=== PATIENT | male | born 1975 | race Caucasian/White ===

== ENCOUNTER → 2023-12-15 06:37 | Day surgery (SDC) | payer OTHER, SELFPAY | LOC: GI 06:37 | PROVIDERS: ATTENDING PHYSICIAN Internal Medicine | DX: Z12.11 Encounter for screening for malignant neoplasm of colon (principal); K57.30 Diverticulosis of large intestine without perforation or abscess without bleeding; K64.8 Other hemorrhoids; D12.3 Benign neoplasm of transverse colon; R12 Heartburn; K44.9 Diaphragmatic hernia without obstruction or gangrene; K29.50 Unspecified chronic gastritis without bleeding | CPT/HCPCS: 45385; 43239; 88305; 88342 ==

== ENCOUNTER 2024-09-18 13:45 | Emergency (ER) | payer OTHER, SELFPAY ==
[2024-09-18 13:54] VITALS: BP 167/103
[2024-09-18 14:20] LABS: INR 1.38; PT 17.2 Sec (11.4-14.6)
[2024-09-18 14:25] LABS: ALT (SGPT) 31 U/L (0-50); AST (SGOT) 28 U/L (17-59); Albumin 4.4 g/dl (3.5-5.0); Alkaline Phosphatase 87 U/L (38-126); Blood Urea Nitrogen 16 mg/dl (9-20); Calcium 8.7 mg/dl (8.4-10.2); Carbon Dioxide 24 mmol/L (22-30); Chloride 105 mmol/L (98-107); Glucose 102 mg/dl (70-99); Potassium 4.1 mmol/L (3.5-5.1); Sodium 137 mmol/L (135-145); Total Bilirubin 1.4 mg/dl (0.2-1.3); Total Protein 7.1 g/dl (6.3-8.2); eGFR > 60.00
[2024-09-18 14:26] LABS: % Basophils 0.3 % (0-2); % Eosinophils 2.6 % (0-6); % Immature Granulocytes 0.3 % (0-0.5); % Lymphocytes 37.6 % (20.5-51.1); % Monocytes 6.3 % (1.7-9.3); % Neutrophils 52.9 % (42.2-75.2); Absolute Eosinophils 0.2 10^3/uL (0-0.7); Absolute Lymphocytes 3.2 10^3/uL (1.2-3.4); Absolute Monocytes 0.5 10^3/uL (0.1-0.6); Absolute Neutrophils 4.6 10^3/uL (1.4-6.5); Hematocrit 45.5 % (39.0-52.0); Hemoglobin 16.8 g/dL (13.0-18.0); Mean Corp Hgb Conc. 36.9 g/dL (33.0-37.0); Mean Corpuscular Hgb 32.6 pg (27.0-31.0); Mean Corpuscular Volume 88.2 fL (80.0-94.0); Mean Platelet Volume 10.1 fL (7.4-10.4); Nucleated Red Blood Cells % 0 % (-); Platelet Count 237 10^3/uL (130-400); Red Blood Cell Count 5.16 10^6/uL (4.70-6.10); Red Cell Dist. Width 11.9 % (11.5-14.5); White Blood Cell Count 8.6 10^3/uL (4.8-10.8)
[2024-09-18 14:36] LABS: Troponin I < 0.012 ng/ml
[2024-09-18 15:42] VITALS: BP 145/87
[2024-09-18 15:46] VITALS: BMI 31.2
[2024-09-18 16:02] VITALS: BP 146/77
--- NOTE | 2024-09-18 16:02 | ED.GENMED ---
History of Present Illness
General
Chief Complaint: Cardiac Symptoms
Source: patient
Exam Limitations: none
Time Seen by Provider: 09/18/24 15:45
History of Present Illness
History of Present Illness:
49yoM with a history of atrial fibrillation s/p ablation x2, CHF, hypertension, and GERD presenting for evaluation of malaise. Patient reports feeling 'off' for the past week and not feeling right. He is having shortness of breath with activity. He
is also having some chest tightness and indigestion. He denies any palpitations and does not feel like he is in afib. He had an ablation 2 years ago and has not had any episodes of afib since then. He is going on a work trip to [place] tomorrow
and wanted to come to the ED to get checked before leaving. He denies any leg swelling, syncope, fevers, vomiting, diarrhea.
Past History
Past History
ED Past Medical History: Arrthythmia and CHF
ED Past Surgical History: Cardiac
Patient has exhibited threatening behavior?: No
Social History
Tobacco: Non-smoker
Alcohol: None
Drug: None
Personal:
Living: with family
Employment: Employed
Family History
Family History: Other (Noncontributory)
Phy Exam
General Physical Exam
General Presentation: well appearing and no apparent distress
General age: appears stated age
General Skin: warm and dry
General Habitus: normal
General Mental: alert
ENT Exam
ENT Exam: normocephalic
Cardiovascular Exam
Cardiovascular Exam: regular rate/rhythm, no edema and no murmur
Pulmonary Exam
Pulmonary Exam: lungs clear, no respiratory distress, no rales, no crackles, no rhonchi and no wheezing
Neurological Exam
Neurological Exam: alert
[place] Coma Scale
Eye Opening: Spontaneous
Verbal Response: Oriented
Motor Response: Obeys Commands
GCS Total Score: 15
Skin Exam
Skin Exam: normal color and warm/dry
Psychiatric Exam
Psychiatric Exam: normal mood/affect
Course
Orders/Labs/Results
Orders:
Orders
09/18/24 13:46
Electrocardiogram (*1) Urgent
Reason for Study: Palpitations
EKG- Treatment ONCE
09/18/24 14:00
TSH Urgent
Comment: ADD ON
09/18/24 14:03
Complete Blood Count/With Diff Urgent
Comprehensive Metabolic Panel Urgent
Magnesium Urgent
Comment: ADD ON
Prothrombin Time Urgent
Troponin I Urgent
09/18/24 15:45
Add On- LAB Urgent
Tests Added?: magnesium, TSH
09/18/24 16:00
Cardiac Monitoring- Treatment ONCE
09/18/24 16:01
Electrocardiogram (*1) Urgent
Reason for Study: Shortness of Breath
EKG- Treatment ONCE
CR Chest - 2 Views Urgent
Comment:
Reason For Exam: SOB
09/18/24 16:15
NT-proBNP Urgent
Troponin I Urgent
Abnormal Lab Results
09/18/24
14:03
MCH 32.6 H pg
(27.0-31.0)
PT 17.2 H Sec
(11.4-14.6)
Glucose 102 H mg/dl
(70-99)
Total Bilirubin 1.4 H mg/dl
(0.2-1.3)
09/18/24 14:03
09/18/24 14:03
Vital Signs
Initial and Last Documented VS:
Initial Vital Signs
Temp Pulse Resp BP Pulse Ox
98.7 F 83 17 167/103 99
09/18/24 13:54 09/18/24 13:54 09/18/24 13:54 09/18/24 13:54 09/18/24 13:54
Last Documented Vital Signs
Temp Pulse Resp BP Pulse Ox
98.7 F 73 18 150/95 98
09/18/24 13:54 09/18/24 17:30 09/18/24 17:30 09/18/24 17:00 09/18/24 17:15
MDM/Problems Addressed
Differential Diagnosis Includes:
49yoM here with feeling 'off' x 1 week. C/o exertional dyspnea and indigestion. Hx of afib. He is mildly hypertensive with otherwise normal vitals. He is well appearing in no distress. Exam is reassuring. Differential diagnosis includes but is not
limited to: arrhythmia, ACS, CHF, pneumonia
Initial ED plan: Cardiac labs and EKG obtained in triage. EKG shows NSR with frequent PVCs. Labs unremarkable including normal troponin. Will check magnesium, TSH, BNP, repeat troponin/EKG, and CXR.
*EKG
Interpreted by ED Provider?: Yes
EKG Intrepretation Date: 09/18/24
Heart Rate: 84
Rate: normal
Rhythm: sinus and PVC's
Stuart: normal axis
Interval: normal interval
QRS Pattern: normal QRS
Ischemia: no ischemia
*Critical Care Note
Total Time (30-74mins, 75-104mins- exclusive of procedures): Not Applicable
Update Note
Update Note:
TSH and BNP normal. Repeat EKG and troponin unchanged. CXR is clear. Only objective finding is frequent PVCs although he denies any palpitations. No indication for hospitalization but will have patient f/u with the chest pain hotline. He was advised
to not exercise until seen by cardiology. Strict ED return precautions discussed. Patient in agreement with plan and was discharged in stable condition.
ED Attending Note
-
Portions of this chart may have been created with voice recognition software.� Occasional wrong word or��sound alike� substitutions may have occurred due to the inherent limitations of voice recognition software.
Discharge Plan
Departure
Patient Disposition: Home (Routine Discharge)
Date of Disposition: 09/18/24
Time of Disposition: 17:31
Patient with high blood pressure during this ER visit?: Yes
Discharge Problem:
Exertional dyspnea, Frequent PVCs
Instructions: Ventricular premature beats, Chest Pain DCA Follow Up
Prescriptions:
No Action
Xarelto 20 MG tablet
20 mg PO QPM
lisinopril 5 MG tablet
2.5 mg PO DAILY
metoprolol succinate [Toprol XL] 100 MG tablet extended release 24 hr
100 mg PO HS
Glucosamine Sulf-Chondroitin 1 EACH capsule
2 cap PO HS
multivitamin Tablet
1 tab PO DAILY
omeprazole 20 mg Capsule,Delayed Release(Dr/Ec)
20 mg PO DAILY
Referrals:
Janes Coughlin MD [Family Provider] -
Stand Alone Forms: Return to Work
Activity Restrictions/Additional Instructions:
Please call your structures mechanic's office tomorrow for follow-up. Do not exercise until seen by your structures mechanic.
Return to the ER with any new or worsening symptoms.
Interventions
Interventions:
*Risk Screen - Suicide Last Done: 09/18/24 13:56
*General Assessment Last Done: 09/18/24 13:56
*Neglect/Abuse Screening Last Done: 09/18/24 13:56
ED- Fall Risk Assessment Last Done: 09/18/24 19:27
*ED COVID-19 Vaccine History Last Done: 09/18/24 13:56
*Nursing Disposition Last Done: 09/18/24 19:27
ED- Pulmonary Assessment Last Done: 09/18/24 19:27
ED- Cardiac Assessment Last Done: 09/18/24 19:27
Discharge Date and Time
Discharge Date/Time: 09/18/24 18:30
Print Language: CHADIAN
[2024-09-18 16:20] LABS: Magnesium 1.8 mg/dl (1.6-2.3)
[2024-09-18 16:45] LABS: Troponin I < 0.012 ng/ml
[2024-09-18 17:00] VITALS: BP 150/95
[2024-09-18 17:02] LABS: TSH 1.18 uIU/ml (0.47-4.68)
[2024-09-18 17:02] LABS: NT-proBNP 347 pg/ml
== END 2024-09-18 18:30 | disposition home or self-care (01) ==
LOC: EMR 13:45
PROVIDERS: Emergency Medicine; Physician Assistant; EMERGENCY PHYSICIAN Student in an Organized Health Care Education/Training Program; FAMILY PHYSICIAN Internal Medicine Cardiovascular Disease
DX: R06.09 Other forms of dyspnea (principal); I49.3 Ventricular premature depolarization; I48.91 Unspecified atrial fibrillation; I11.0 Hypertensive heart disease with heart failure; I50.9 Heart failure, unspecified; K21.9 Gastro-esophageal reflux disease without esophagitis
CPT/HCPCS: 99283; 71046; 80053; 83735; 83880; 84443; 84484; 85025; 85610; 93005

== ENCOUNTER → 2024-10-05 07:00 | Outpatient (REF) | payer OTHER, SELFPAY | LOC: HWRCS 07:00 | PROVIDERS: ATTENDING PHYSICIAN Nurse Practitioner; FAMILY PHYSICIAN Family Medicine | DX: I42.9 Cardiomyopathy, unspecified (principal); R06.02 Shortness of breath; I49.3 Ventricular premature depolarization | CPT/HCPCS: 93306 ==

== ENCOUNTER → 2024-10-07 09:49 | Outpatient (REF) | payer OTHER, SELFPAY | LOC: RCS 09:49 | PROVIDERS: ATTENDING PHYSICIAN Nurse Practitioner; FAMILY PHYSICIAN Family Medicine | DX: R06.02 Shortness of breath (principal); I42.9 Cardiomyopathy, unspecified; I49.3 Ventricular premature depolarization | CPT/HCPCS: 93017 ==